=== PATIENT | male | born 1950 | race African-American/Black ===

== ENCOUNTER 2020-10-21 17:12 | Emergency (ER) | payer MEDICARE ==
--- OUTSIDE RECORDS SUMMARY | 2020-10-21 17:30 | XMS REPORT ---
:1950 [facility] Address [address] [address] Care Team Providers Name Role Phone Unavailable Unavailable Unavailable Allergies, Adverse Reactions, Alerts This patient has no known allergies or adverse reactions. Medications This patient has no known medications. Problems This patient has no known problems. Procedures This patient has no known procedures. Results This patient has no known results. Social History This patient has no known social history. Vital Signs This patient has no known vital signs.
--- NOTE | 2020-10-21 17:58 | ER Document Report ---
ED General - General Chief Complaint: Breathing Difficulty Stated Complaint: DIFFICLTY BREATHING Time Seen by Provider: 10/21/20 17:57 - HPI Notes: 70-year-old male arrives by EMS for reported shortness of breath. Patient collapsed upon arrival to the emergency department, myself and nursing staff immediately at his side as he was unresponsive and CPR was begun. Per EMS patient has had a cough and shortness of breath for the past week. He went to [facility] today for evaluation, however EMS was called given his respiratory status. Reportedly the Covid swab was negative. EMS reports that he was hypoxic to 87 to 88% on room air. They state that he was uncooperative with their treatment, he refused to wear oxygen, however did receive a nebulized treatment. No medications administered prior to arrival. There is no family present initially. Past Medical History - General Information source: Emergency Med Personnel - Social History Smoking Status: Unknown if Ever Smoked Family History: Other - unable to assess Review of Systems - Review of Systems -: Yes ROS unobtainable due to patient's medical condition Course - Re-evaluation Re-evalutation: 70-year-old male arrived via EMS for shortness of breath and cough x1 week, immediately collapsing upon arrival to the emergency department and CPR initiated. Patient's initial rhythm was PEA. ACLS cardiopulmonary resuscitation was delivered to this patient. During his resuscitation his predominant rhythms were PEA and asystole. He did have one episode of V. fib, for which he received a 200 J defibrillation, which did not return pulses. Patient received 11 rounds of epinephrine, 1 amp of bicarb, 1 amp of calcium gluconate. During his resuscitation he did receive TNKase as a high concern for potential pulmonary embolism as the cause of arrest given the information that he was complaining of shortness of breath and then collapsed. Patient was intubated during the resuscitation, it was noted that he appeared to have aspirated as well. On initial assessment patient was GCS 3, his pupils were fixed and dilated. During the resuscitation his pupils remained fixed and dilated. Patient's arrived to the emergency department, she discussed that he had been short of breath and coughing for the past 5 days, it was to the point today that he could no longer walk due to his significant shortness of breath, additionally was having shortness of breath just with sitting. Unfortunately despite maximum resuscitative efforts, patient never had return of spontaneous circulation. His was present when time of was called at 1749. A bedside ultrasound showed no cardiac motion and pooling of blood. His final rhythm was asystole. Pupils remained fixed and dilated. No spontaneous respiratory effort and no response to pain. The medical scheduler was informed, it was deemed for him not to be a ME case. A rapid Covid swab was sent to the lab. 10/21/20 20:28 Covid negative. certificate was filled out has patient does not have an established primary care doctor. - Laboratory Results Laboratory Results Interpreted: 10/21/20 17:31 POC Glucose 147 H Critical Laboratory Results Reviewed: No Critical Results - Radiology Results Critical Radiology Results Reviewed: No Critical Results Procedures - Intubation Orotracheal Airway evaluation: Other - Active CPR in progress Medications: Other - None, unresponsive, active CPR Intubation method: Orotracheal Blade type: Amrita Blade size: 4 Equipment used: Glidescope ETT size: 7.0 ETT secured at: Teeth ETT secured at (cm): 25 Breath Sounds after Intubation: Equal End tidal CO2 confirmed: Yes Intubation Complications: No complications - Ultrasound/Bedside Ultrasound/Bedside Notes: Limited cardiac ultrasound was performed during cardiopulmonary resuscitation. Patient had no cardiac motion, pooling of blood, no pericardial effusion. - Additional Procedures IV insertion Notes: 18-gauge IV was placed into the left external jugular vein during active resuscitation. Line was secured, blood returned and flushed easily. Critical Care Note - Critical Care Note Total time excluding time spent on procedures (mins): 50 - 50 minutes of critical care time related to active cardiopulmonary resuscitation, exclusive of procedure time. Discharge - Discharge Clinical Impression: Cardiac arrest Disposition:
[2020-10-21] MEDS ORDERED: EPINEPHRINE INJ 1 MG/10 ML DISP.SYRIN ONE ×2 (18:11→19:16)
[2020-10-21] MEDS ORDERED: TENECTEPLASE INJ 50 MG KIT IV ONE ×2 (18:36→19:00)
[2020-10-21] MEDS ORDERED: SODIUM BICARBONATE 8.4% INJ 50 MEQ/50 ML DISP.SYRIN ONE (19:16)
[2020-10-21] MEDS ORDERED: CALCIUM GLUCONATE 1000 MG/10 ML INJ IV ONE (19:16)
== END 2020-10-21 20:55 | disposition expired ==
LOC: ER 17:12
DX: I46.9 Cardiac arrest, cause unspecified (principal); R06.00 Dyspnea, unspecified; R05 Cough; R06.02 Shortness of breath; I49.01 Ventricular fibrillation; Z20.822 Contact with and (suspected) exposure to COVID-19
CPT/HCPCS: 99285; 96374; 36415; 82962; 0202U; 31500; 92960; J0610; J0171; J3490; J3101